=== PATIENT | female | born 1980 | race Caucasian/White ===

== ENCOUNTER 2020-11-21 12:34 | Emergency (ER) | payer BC ==
[~2020-11-21] VITALS: Ht 162.6 cm; Wt 52.2 kg
--- NOTE | 2020-11-21 12:40 | NUR ---
BIB SELF C/O L FLANK PAIN STARTED THIS MORNING. RATES PAIN 6/10. THE PATIENT ALERT AND ORIENTED X4. DENIES SOB. ABDOMEN SOFT AND NON-DISTENDED. WILL CONTINUE TO MONITOR THE PATIENT.
[2020-11-21] MEDS ORDERED: KETOROLAC TROMETHAMINE INJ 30 MG/ML VIAL IV ONE (13:30)
[2020-11-21] MEDS ORDERED: IV NS 0.9% 1,000 ML IV ONE (13:30)
[2020-11-21] MEDS ORDERED: KETOROLAC TROMETHAMINE 15 MG/ML VIAL ONE (13:30)
--- NOTE | 2020-11-21 13:56 | NUR ---
URINE COLLECTED AND SENT TO THE LAB
[2020-11-21 13:58] LABS: BASOPHILS % (AUTO) 0.5 % (0.0-2.0); HEMATOCRIT 40 % (33-45); HEMOGLOBIN 13.7 g/dL (11.5-14.8); LYMPHOCYTES # (AUTO) 1.4 /CMM (0.8-4.8); LYMPHOCYTES % (AUTO) 17.3 % (20.0-44.0); MEAN CORPUSCULAR HGB CONC 34 g/dl (31.0-36.0); MEAN CORPUSCULAR VOLUME 90 fL (82-100); MONOCYTES # (AUTO) 0.3 /CMM (0.1-1.30); MONOCYTES % (AUTO) 4.1 % (2.0-12.0); NEUTROPHILS # (AUTO) 6.2 /CMM (1.8-8.9); NEUTROPHILS % (AUTO) 76.1 % (43.0-81.0); PLATELET COUNT (AUTO) 278 /CMM (150-450); RED BLOOD CELL COUNT(AUTO) 4.48 MIL/uL (4.0-5.2); WHITE BLOOD COUNT (AUTO) 8.1 K/uL (4.3-11.0)
[2020-11-21 14:02] LABS: BILIRUBIN,URINE NEGATIVE (NEGATIVE); COLOR,URINE YELLOW (YELLOW); LEUKOCYTE ESTERASE ,URINE NEGATIVE (NEGATIVE); NITRITE, URINE NEGATIVE (NEGATIVE); PROTEIN,URINE NEGATIVE (NEGATIVE); UGLUCOSE NEGATIVE (NEGATIVE); UROBILINOGEN,URINE 0.2 EU/dL (0.2)
[2020-11-21 14:03] LABS: CALCIUM, SERUM 9.1 mg/dL (8.5-10.1); CREATININE 0.8 mg/dL (0.6-1.3)
[2020-11-21 14:14] LABS: BACTERIA,URINE Rare /HPF (None Seen); WBC,URINE 0-2 /HPF (0-3)
[2020-11-21 14:15] LABS: CALCIUM OXALATE CRYSTALS,UR Rare /HPF (None Seen)
[2020-11-21] MEDS ORDERED: ONDA4TAB5 PO (15:01)
[2020-11-21] MEDS ORDERED: IBUP-1957 PO (15:01)
[2020-11-21] MEDS ORDERED: HYDR-4303 PO (15:01)
[2020-11-21 15:11] VITALS: BP 131/74
--- NOTE | 2020-11-21 15:11 | NUR ---
Patient discharged to home in stable condition. Written and verbal after care instructions given. Patient verbalizes understanding of instruction. The patient left ER in stable condition.
== END 2020-11-21 15:12 | disposition home or self-care (01) ==
LOC: ER 12:38
DX: N20.0 Calculus of kidney (principal); R31.9 Hematuria, unspecified; Z98.890 Other specified postprocedural states
CPT/HCPCS: 36415; 76770; 80048; 81001; 85025; 96361; 96374; 99284; J1885; J7030